=== PATIENT | male | born 1960 | race Caucasian/White ===

== ENCOUNTER 2025-06-06 10:12 | Day surgery (SDC) | payer SELFPAY | END 2025-06-06 10:15 | disposition home or self-care (01) | LOC: OR 10:15 | PROVIDERS: PCP Family Medicine; Referring Provider Family Medicine; Visit Provider Otolaryngology | DX: Z12.11 Encounter for screening for malignant neoplasm of colon (principal) | CPT/HCPCS: 45378 ==